=== PATIENT | male | born 1995 | race Caucasian/White ===

== ENCOUNTER 2017-07-30 21:13 | Emergency (ER) | payer BC ==
[2017-07-30 21:27] VITALS: O2SAT 96
--- NOTE | 2017-07-30 21:33 | EDPHY ---
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 Source: Patient Exam Limitations: No limitations - Personal History Current Tetanus/Diphtheria Vaccine: Yes Tetanus Vaccine Date: 2011 - Medical/Surgical History Hx Asthma: No Hx Chronic Respiratory Disease: No Hx Diabetes: No Hx Cardiac Disease: No Hx Renal Disease: No Hx Cirrhosis: No Hx Alcoholism: No Hx HIV/AIDS: No Hx Splenectomy or Spleen Trauma: No Other PMH: concussion - Social History Smoking Status: Never smoked Time Seen by Provider: 07/30/17 21:33 HPI/ROS: HPI: This is a 21-year-old male presents with Chief Complaint: 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 He reports that there was bleeding immediately but stopped with direct pressure. He believes that his tetanus is up-to-date. He denies any decreased range of motion, paresthesias, skin color changes. He is ambulatory without deficits. Modifying Factors: Direct pressure Comment: ROS: see HPI Constitutional: No fever, no chills, no weight loss Eyes: No blurred vision Respiratory: No shortness of breath, no cough Cardiovascular: No chest pain Gastrointestinal: No nausea, no vomiting no diarrhea Genitourinary: No dysuria Extremities: No myalgias Neurologic: No weakness, no numbness Skin: No rashes Hematologic: No bruising, no bleeding MEDICAL/SURGICAL/SOCIAL HISTORY: Medical history: History of concussion in the past. Generally healthy. Does not take any regular medications. Surgical history: Denies Social history: [employer] college student CONSTITUTIONAL: Well-developed well-nourished young adult white male, awake and alert, no obvious distress HEENT: Atraumatic and normocephalic, PERRL, EOMI. Tympanic membranes clear. Oropharynx clear, no exudate and moist pink mucosa. Airway patent. No lymphadenopathy. No meningismus. Cardiovascular: Normal S1/S2, regular rate, regular rhythm, without murmur rub or gallop. PULMONARY/CHEST: Symmetrical and nontender. Clear to auscultation bilaterally. Good air movement. No accessory muscle usage. ABDOMEN: Soft, nondistended, nontender, no rebound, no guarding, no peritoneal signs, no masses or organomegaly. No CVAT. EXTREMITIES: 2/2 DP and PT pulses, LEFT KNEE: no effusion, medial and lateral joint line tenderness, full extension to 180, flexion to 120, no pain with varus and valgus exam. left posterior lower leg show 3 cm vertical superficial laceration inferior to the joint space. Achilles tendon intact. strength 5/5, no deformities, no clubbing, no cyanosis or edema. NEUROLOGICAL: no focal neuro deficits. GCS 15. SKIN: Warm and dry, no erythema. no rash. Good capillary refill. (Deborah Morfin) Constitutional: Initial Vital Signs Temperature (C) 37.1 C 07/30/17 21:24 Heart Rate 76 07/30/17 21:24 Respiratory Rate 15 07/30/17 21:24 Blood Pressure 137/92 H 07/30/17 21:24 O2 Sat (%) 96 07/30/17 21:24 O2 Delivery Mode Room Air Allergies/Adverse Reactions: No Known Allergies Allergy (Unverified 07/30/17 21:24) Home Medications: Medication Instructions Recorded NK [No Known Home Meds] 07/30/17 Medical Decision Making Procedures: Procedure: Laceration repair. Verbal consent was obtained from the patient. The simple, linear, 2 cm laceration on the left superior calf was anesthetized in the usual fashion. The wound was irrigated, draped and explored to its base with a gloved finger. There were no deep structures involved. No tendon injury was identified. The wound repair was 5-0 Prolene in simple interrupted pattern. Xeroform and clear sterile dressing applied. The procedure was performed by myself. (Deborah Morfin) ED Course/Re-evaluation: Wound care and laceration repair Tetanus booster up-to-date No signs of neurovascular compromise/tenting of skin/compartment syndrome/ extremities and joints examined above and below area of concern and are neurovascularly intact. Laceration repaired with nonabsorbable sutures. Xeroform and clean sterile dressing applied. (Deborah Morfin) The patient was evaluated and managed by the physician assistant head cashier. I have reviewed this chart and I agree with the findings and plan of care as documented , as indicated by my signature. I am the secondary supervising physician. ( Yun Randhawa) Differential Diagnosis: Differential diagnosis includes but is not limited to laceration, contusion, Achilles tendon injury, nerve injury. (Deborah Morfin) Departure - Departure Disposition: Home, Routine, Self-Care Clinical Impression: Laceration of left calf without complication Condition: Good Instructions: Care For Your Stitches (ED), Laceration (ED) Additional Instructions: Keep the dressing in place for 48 hours. After 48 hours, you may remove the dressing; wash the site daily with mild soap and water; then pat dry. Take ibuprofen 600 mg every 8 hours with food as needed for pain. Apply ice for 30 minutes at a time; 2-3 times per day for the next 1-2 days. Please return to the emergency room to have sutures removed in 7-10 days. Referrals: KIMMIE Roldan,. [Clinic] - As per Instructions
[2017-07-30 22:32] VITALS: BP 134/76; PULSE 72; RESP 14; TEMP 98.1
== END 2017-07-30 22:31 | disposition home or self-care (01) ==
PROC: 0HQLXZZ Repair Left Lower Leg Skin, External Approach (ICD-10-PCS; principal; 2017-07-30)
DX: S81.812A Laceration without foreign body, left lower leg, initial encounter (principal); W45.8XXA Other foreign body or object entering through skin, initial encounter; Y99.8 Other external cause status; Y93.22 Activity, ice hockey